=== PATIENT | female | born 1980 | race African-American/Black ===

== ENCOUNTER 2018-03-18 16:57 | Emergency (ER) | payer OTHER ==
[~2018-03-18] VITALS: Ht 162.6 cm; Wt 76.7 kg
[2018-03-18 17:12] LABS: URINE BILIRUBIN NEGATIVE (Negative); URINE BLOOD 3+ (Negative); URINE CLARITY SL CLOUDY; URINE COLOR YELLOW; URINE GLUCOSE-RANDOM* NEGATIVE (Negative); URINE KETONES TRACE (Negative); URINE PROTEIN (DIPSTICK) 2+ (Negative); URINE SPECIFIC GRAVITY <= 1.005 (1.005-1.035); URINE UROBILINOGEN 0.2 E.U./dl (0.2-1.0)
[2018-03-18 17:24] LABS: URINE LEUKOCYTES-REFLEX 2+ (Negative); URINE NITRITE-REFLEX POSITIVE (Negative)
[2018-03-18 17:27] LABS: CASTS None Seen /LPF (None Seen); CRYSTALS None Seen /LPF (None Seen); SQUAMOUS 0-3 Few /LPF (0-3); URINE RBC 0-2 Rare /HPF (0-2); URINE WBC-REFLEX >25 Many /HPF (0-5)
[2018-03-18 18:03] LABS: ABSOLUTE NEUTROPHILS 7.2 thou/uL (1.4-8.2); BASOPHILS 0.1 % (0.0-2.0); EOSINOPHILS 0.1 % (0.0-3.0); HEMATOCRIT 39.9 % (37.0-47.0); HEMOGLOBIN 13.4 gm/dL (12.0-15.0); LYMPHOCYTES 4.5 % (24.0-44.0); MCH 32.2 pg (26.0-34.0); MCHC 33.6 g/dL (28.0-37.0); MCV 95.8 fL (80.0-100.0); MONOCYTES 1.9 % (1.0-8.0); PLATELET COUNT 213 thou/uL (150-400); POLYS 93.4 % (36.0-66.0); RBC 4.17 mil/uL (4.20-5.00); RDW 15.2 % (10.5-14.5); WBC 7.7 thou/uL (4.0-11.0)
[2018-03-18 18:12] LABS: CALCIUM 9.1 mg/dL (8.5-10.1); CREATININE 1.1 mg/dL (0.6-1.0); POTASSIUM 3.1 mmol/L (3.5-5.1)
[2018-03-18] MEDS ORDERED: KEFLEX500 M1 PO (19:42)
[2018-03-18] MEDS ORDERED: NORCO 5-325 TA1 EACH PO (19:42)
[2018-03-18 19:56] VITALS: BP 118/71
== END 2018-03-18 20:00 | disposition home or self-care (01) ==
LOC: ER 16:57
PROVIDERS: Physician Assistant
DX: N12 Tubulo-interstitial nephritis, not specified as acute or chronic (principal); F17.210 Nicotine dependence, cigarettes, uncomplicated; Z88.0 Allergy status to penicillin

== ENCOUNTER 2020-01-26 13:41 | Emergency (ER) | payer OTHER ==
[~2020-01-26] VITALS: Ht 162.6 cm; Wt 84.8 kg
[~2020-01-26 13:41] MED LIST: KEFLEX500 M1 PO; NORCO 5-325 TA1 EACH PO
[2020-01-26] MEDS ORDERED: LISINOPRIL-HCT1 EAC1 PO (14:00)
[2020-01-26] MEDS ORDERED: METFORMIN HCL500 M3 PO (14:01)
[2020-01-26] MEDS ORDERED: HYDROXYZINE HCL25 M2 PO (14:02)
[2020-01-26] MEDS ORDERED: MELATONIN10 M3 PO (14:02)
[2020-01-26] MEDS ORDERED: DESYREL150 MG PO (14:02)
[2020-01-26 14:47] LABS: BASOPHILS 0.4 % (0.0-2.0); HEMATOCRIT 41.8 % (37.0-47.0); HEMOGLOBIN 13.7 gm/dL (12.0-15.0); LYMPHOCYTES 25.6 % (24.0-44.0); MCH 30.6 pg (26.0-34.0); MCHC 32.8 g/dL (28.0-37.0); MCV 93.3 fL (80.0-100.0); MONOCYTES 8.4 % (1.0-8.0); PLATELET COUNT 343 thou/uL (150-400); POLYS 63.6 % (36.0-66.0); RBC 4.48 mil/uL (4.20-5.00); RDW 15.7 % (10.5-14.5); WBC 6.4 thou/uL (4.0-11.0)
[2020-01-26 14:56] LABS: ANION GAP 12 mmol/L (7-16); BUN 9 mg/dL (7-18); CALCIUM 9.6 mg/dL (8.5-10.1); CHLORIDE 101 mmol/L (98-107); CO2 25 mmol/L (21-32); CREATININE 0.8 mg/dL (0.6-1.0); GLUCOSE 142 mg/dL (74-106); POTASSIUM 4.1 mmol/L (3.5-5.1); SODIUM 138 mmol/L (136-145)
[2020-01-26 15:04] LABS: ALBUMIN 4.1 g/dL (3.4-5.0); SGOT 61 U/L (15-37); SGPT 94 U/L (30-65); TOTAL BILIRUBIN 0.2 mg/dL (0.2-1.0); TROPONIN-I <0.06 ng/mL (<0.06)
[2020-01-26 17:34] VITALS: BP 122/80
--- NOTE | 2020-01-27 11:20 | EKG ---
[facility] [place] [address] ELECTROCARDIOGRAM REPORT Name: JULIEN SMALLS Room #: [facility]#: [id number] Admission: 01/26/20 Attend Phys: Discharge: 01/26/20 Date of : [birth year] Report #: [id number] THIS REPORT FOR: cc: FAM - Family physician unknown FAM - Family physician unknown Carlos Curiel MD [facility] ~ THIS REPORT FOR: //name// [facility] ED Test Date: 2020-01-26 Test Time: 13:57:07 Pat Name: JULIEN SMALLS Department: Room: Gender: F Staffing Administrator: [facility] : 1980 Requested By: Blayne Lopez Order Number: [id number] MD: Carlos Curiel Measurements Intervals [place] Rate: 92 P: 46 WV: 147 QRS: 21 QRSD: 84 T: 18 QT: 349 QTc: 432 Interpretive Statements Sinus rhythm Probable left atrial enlargement No previous ECG available for comparison Electronically Signed On 01-27-2020 11:20:08 CDT by Carlos Curiel [email or web address] <ELECTRONICALLY SIGNED> By: Carlos Curiel MD, FACC 01/27/20 1120 135 135 Carlos Curiel MD, FACC /EPI
== END 2020-01-26 17:34 | disposition home or self-care (01) ==
LOC: ER 13:41
PROVIDERS: Emergency Medicine
DX: R07.9 Chest pain, unspecified (principal); I10 Essential (primary) hypertension; E11.9 Type 2 diabetes mellitus without complications; F17.210 Nicotine dependence, cigarettes, uncomplicated; Z79.899 Other long term (current) drug therapy; Z88.0 Allergy status to penicillin

== ENCOUNTER 2020-09-07 01:56 | Emergency (ER) | payer OTHER ==
[~2020-09-07] VITALS: Ht 162.6 cm; Wt 81.7 kg
[~2020-09-07 01:56] MED LIST changes: +DESYREL150 MG PO; +HYDROXYZINE HCL25 M2 PO; +LISINOPRIL-HCT1 EAC1 PO; +MELATONIN10 M3 PO; +METFORMIN HCL500 M3 PO
[2020-09-07 02:25] LABS: BASOPHILS 0.4 % (0.0-2.0); EOSINOPHILS 0.1 % (0.0-3.0); HEMATOCRIT 42.6 % (37.0-47.0); HEMOGLOBIN 14.4 gm/dL (12.0-15.0); LYMPHOCYTES 8.9 % (24.0-44.0); MCH 30.5 pg (26.0-34.0); MCHC 33.8 g/dL (28.0-37.0); MCV 90.4 fL (80.0-100.0); MONOCYTES 2.6 % (1.0-8.0); PLATELET COUNT 358 thou/uL (150-400); RBC 4.72 mil/uL (4.20-5.00); RDW 13.9 % (10.5-14.5); WBC 11.3 thou/uL (4.0-11.0)
[2020-09-07 02:37] LABS: CALCIUM 9.3 mg/dL (8.5-10.1)
[2020-09-07 02:42] LABS: ALBUMIN 3.9 g/dL (3.4-5.0); TOTAL BILIRUBIN 0.4 mg/dL (0.2-1.0); TOTAL PROTEIN 8.3 g/dL (6.4-8.2)
[2020-09-07 03:19] LABS: URINE BILIRUBIN 1+ (Negative); URINE BLOOD 1+ (Negative); URINE CLARITY CLEAR; URINE COLOR YELLOW; URINE GLUCOSE-RANDOM* NEGATIVE (Negative); URINE KETONES 3+ (Negative); URINE LEUKOCYTES-REFLEX NEGATIVE (Negative); URINE NITRITE-REFLEX NEGATIVE (Negative); URINE PROTEIN (DIPSTICK) TRACE (Negative); URINE SPECIFIC GRAVITY 1.015 (1.005-1.035); URINE UROBILINOGEN 0.2 E.U./dl (0.2-1.0)
[2020-09-07 03:37] LABS: ICTOTEST (BILI CONFIRMATORY) Positive (Negative)
[2020-09-07 03:39] LABS: BACTERIA-REFLEX 1-9 Few /HPF (None Seen); CASTS None Seen /LPF (None Seen); CRYSTALS None Seen /LPF (None Seen); MUCUS None Seen strn/LPF (None Seen); SQUAMOUS 4-10 Moderate /LPF (0-3); URINE RBC 1-2 Rare /HPF (NONE SEEN); URINE WBC-REFLEX None Seen /HPF (0-5)
[2020-09-07] MEDS ORDERED: ZOFRAN ODT4 MG PO (05:02)
[2020-09-07] MEDS ORDERED: LEVSIN0.125 MG PO (05:02)
[2020-09-07 05:08] VITALS: BP 120/78
== END 2020-09-07 05:08 | disposition home or self-care (01) ==
LOC: ER 01:56
PROVIDERS: Emergency Medicine
DX: K52.9 Noninfective gastroenteritis and colitis, unspecified (principal); Z20.822 Contact with and (suspected) exposure to COVID-19; I10 Essential (primary) hypertension; E11.9 Type 2 diabetes mellitus without complications; F17.210 Nicotine dependence, cigarettes, uncomplicated; Z88.0 Allergy status to penicillin

== ENCOUNTER 2020-09-28 23:37 | Emergency (ER) | payer OTHER ==
[~2020-09-28] VITALS: Ht 162.6 cm; Wt 86.2 kg
[~2020-09-28 23:37] MED LIST changes: +LEVSIN0.125 MG PO; +ZOFRAN ODT4 MG PO
[2020-09-29 00:18] LABS: ABSOLUTE NEUTROPHILS 10.2 thou/uL (1.4-8.2); BASOPHILS 0.4 % (0.0-2.0); EOSINOPHILS 1.2 % (0.0-3.0); HEMATOCRIT 47.3 % (37.0-47.0); HEMOGLOBIN 15.5 gm/dL (12.0-15.0); LYMPHOCYTES 22.6 % (24.0-44.0); MCH 30.7 pg (26.0-34.0); MCHC 32.7 g/dL (28.0-37.0); MCV 93.8 fL (80.0-100.0); MONOCYTES 6.1 % (1.0-8.0); PLATELET COUNT 364 thou/uL (150-400); POLYS 69.7 % (36.0-66.0); RBC 5.04 mil/uL (4.20-5.00); RDW 15.1 % (10.5-14.5); WBC 14.6 thou/uL (4.0-11.0)
[2020-09-29 00:24] LABS: CALCIUM 8.9 mg/dL (8.5-10.1); POTASSIUM 3.2 mmol/L (3.5-5.1)
[2020-09-29 00:30] LABS: ALBUMIN 3.1 g/dL (3.4-5.0); TOTAL BILIRUBIN 0.5 mg/dL (0.2-1.0); TOTAL PROTEIN 6.8 g/dL (6.4-8.2)
[2020-09-29 00:38] LABS: URINE BILIRUBIN 2+ (Negative); URINE BLOOD TRACE (Negative); URINE CLARITY SL CLOUDY; URINE COLOR YELLOW; URINE GLUCOSE-RANDOM* NEGATIVE (Negative); URINE KETONES 3+ (Negative); URINE NITRITE-REFLEX NEGATIVE (Negative); URINE PROTEIN (DIPSTICK) NEGATIVE (Negative); URINE SPECIFIC GRAVITY >= 1.030 (1.005-1.035)
[2020-09-29 00:42] LABS: URINE LEUKOCYTES-REFLEX 1+ (Negative)
[2020-09-29 01:06] LABS: BACTERIA-REFLEX >30 Many /HPF (None Seen); CASTS None Seen /LPF (None Seen); CRYSTALS None Seen /LPF (None Seen); MUCUS 0-3 Light strn/LPF (None Seen); SQUAMOUS 4-10 Moderate /LPF (0-3); URINE RBC 3-10 Few /HPF (NONE SEEN)
[2020-09-29] MEDS ORDERED: MACROBID 100 M100 M1 PO (02:44)
[2020-09-29] MEDS ORDERED: BENTYL 10 MG CA10 MG PO (02:44)
[2020-09-29 03:41] VITALS: BP 110/75
== END 2020-09-29 04:17 ==
LOC: ER 23:37
PROVIDERS: Emergency Medicine
DX: N39.0 Urinary tract infection, site not specified (principal); R11.2 Nausea with vomiting, unspecified; R10.10 Upper abdominal pain, unspecified; I10 Essential (primary) hypertension; E11.9 Type 2 diabetes mellitus without complications; F17.210 Nicotine dependence, cigarettes, uncomplicated; Z88.0 Allergy status to penicillin; Z91.010 Allergy to peanuts; Z79.899 Other long term (current) drug therapy

== ENCOUNTER 2020-11-01 20:48 | Emergency (ER) | payer OTHER ==
[~2020-11-01] VITALS: Ht 165.1 cm; Wt 87.5 kg
--- NOTE | ~2020-11-01 | EMS ---
[place] [address] EMS Patient Care Report Name: JULIEN SMALLS Room #: [facility]P [facility] Velasquez#: [id number] Admission: 11/01/20 Attend Phys: Discharge: 11/02/20 Date of : [birth year] Report #: [id number] THIS REPORT FOR: //name// Report Transmitted: 11/02/2020 09:18 EMS Care Summary [place], [place]/[facility] Incident [id number] @ 11/01/2020 20:10 Incident Location [address] [place], [place] [id number] Patient JULIEN SMALLS Female, 39 Years 1980 Patient Address Patient History Behavioral/Psychiatric Disorder, Patient Allergies No known allergies, Patient Medications Trazodone, Chief Complaint AMS Disposition Transported No Lights/[place] Dispatch Reason Stroke/CVA Transported To [facility] Narrative UPON ARRIVAL WE FOUND OUR OBTUNDED 39 YEAR OLD FEMALE PATIENT SLUMPED OVER ON THE COUCH IN THE FRONT ROOM OF AN APT WITH [employer] AND ALS P41 BY HER SIDE. [employer] STATES THEY RECEIVED A CALL FROM A 3RD LIBERTARIAN WHO CALLED TO REPORT THAT THE PATIENT WENT UNCONSCIOUS WHILE THEY WERE FACETIMING. THERE IS A PLATE ON THE COFFEE TABLE IN FRONT OF THE COUCH THAT HAS A LINE OF A COARSELY CRUSHED WHITE SUBSTANCE WITH A STRAW AND A BOTTLE OF TRAZODONE TABLETS. THE PATIENT ALSO HAS [place] [id number] EMS Patient Care Report Name: JULIEN SMALLS Room #: [facility]P [facility].#: [id number] Admission: 11/01/20 Attend Phys: Discharge: 11/02/20 Date of : 80 Report #: [id number] THE ODOR OF ETOH ON HER PERSON WITH GLASSY EYES AND REDDENED SCLERA. WE TRANSPORTED THE PATIENT TO [facility], WHICH WAS THE CLOSEST [facility]. Initial Vitals @20:44P: 72,R: 18,BP: 122/80,SpO2: 97, @20:29P: 91,R: 18,BP: 125/88,Pain: 0/10,GCS: 11,Glucose: 114,CO: 3,SpO2: 97,Revised Trauma: 11,CT Suspected: false Assessments @20:24MENTAL:Other,SKIN:Diaphoresis,HEENT:Head/Face: Other,Eyes: Left Pupil: 4-mm,Eyes: Right Pupil: 4-mm,Neck/Airway: No Abnormalities,LUNG SOUNDS:General: No Abnormalities,ABDOMEN:General: No Abnormalities,PELVIS//GI:No Abnormalities,EXTREMITIES:Left Arm: No Abnormalities,Right Arm: No Abnormalities,Left Leg: No Abnormalities,Right Leg: No Abnormalities,PULSE:Radial: 2+ Normal,NEURO:Slurred Speech, Impression Altered Mental Status Procedures @20:24ALS AssessmentResponse: UnchangedSucceeded@20:32Saline Lock 0cc (20 ga) Site: Forearm-LeftResponse: UnchangedSucceeded@20:293-Lead ECGResponse: UnchangedSucceeded Timeline 20:07,Call Received 20:07,Dispatch Notified 20:10,Dispatched 20:13,En Route 20:23,On Scene 20:24,At Patient 20:24,ALS Assessment,Response: UnchangedSucceeded, 20:29,3-Lead ECG,Response: UnchangedSucceeded, 20:29,BP: 125/88 M,PULSE: 91,RR: 18 R,SPO2: 97 Ox,ETCO2: ,B,PAIN: 0,GCS: 11, 20:32,Saline Lock 0cc 20 ga Site: Forearm-Left,Response: UnchangedSucceeded, 20:33,Depart Scene 20:43,At Destination 20:44,BP: 122/80 M,PULSE: 72,RR: 18 R,SPO2: 97 Ox,ETCO2: ,BG: ,PAIN: ,GCS: , 21:11,Call Closed Disclaimer v1.1 Copyright 2020 [employer] This EMS Care Summary contains data elements from the applicable legal record (which may be displayed differently). It is designed to provide pertinent information for the following purposes: continuity of care, clinical quality, [address] [address] EMS Patient Care Report Name: SLIMJULIENJIM SOW Room #: [facility]P [facility] Velasquez#: [id number] Admission: 11/01/20 Attend Phys: Discharge: 11/02/20 Date of : [birth year] Report #: [id number] and state data reporting. The complete legal record is available to ED staff and administrators of the receiving hospital in ES's Patient Tracker. All data is provided "as is."
--- NOTE | ~2020-11-01 | HC ---
[facility] [place] [address] CONSULTATION Name: JULIEN SMALLS [id number] Admission: 11/01/20 Attend Phys: Discharge: 11/02/20 Date of : 80 Report #: [id number] THIS REPORT FOR: cc: Patti Mejia, Patti Blunt,Javier Hewitt MD ~ DATE OF SERVICE: 11/01/2020 DATE OF SERVICE: 11/01/2020 and 11/02/2020 HISTORY OF PRESENT ILLNESS: This is a 39-year-old female patient on whom I got a call from Emergency Room physician around 11:15 p.m. today. The call was because he has received the CT scan results and CT scan has shown a question of hyperdense sign as well as some patchy confluence with less than one-third area of the middle cerebral artery distribution. The patient's clinical presentation was consistent with a large right hemispheric stroke. I came and saw this patient immediately from home and I talked to neuroradiologist who read this CT scan and he indicated that hyperdense sign is there. He also indicated that there is no hemorrhage. Emergency Room physician has talked to the patient's friend and they were very certain that she was within the timeframe for giving the tPA. This patient is a very difficult patient. She had cocaine in her system. Cocaine was not evaluated in earlier study and there is one 2009 study, indicated that the risk of hemorrhage is about the same as in general populace in getting the tPA. Some other studies have indicated that chronic cocaine users have higher incidence of hemorrhage. Similarly, initially, the patient with carotid dissections were excluded from tPA, but now it is considered only a relative contraindication and the emphasis is to go ahead and proceed with tPA. Similarly, the stroke is showing up on CT, but I talked to neuroradiologist, it is only a very small distribution and the timing from the friend is pretty accurate according to the Emergency Room. When I came and examined the patient, she was getting tPA and she had a complete dense left hemiplegia. She was able to talk. She had a dense left facial palsy. So, she has clinical evidence for a large right hemispheric CVA. Further history was limited. She did not provide much history except the headache. There is a gentleman in the room who says he is the patient's father and he said he does not know anything about the history, especially the drug abuse history. 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 This is a very difficult patient. Her prognosis is very guarded, does not [facility] [address] [place] [address] CONSULTATION Name: JULIEN SMALLS MAGI Room #: DEP [facility] Velas[facility]#: [id number] Admission: 11/01/20 Attend Phys: Discharge: 11/02/20 Date of : [birth year] Report #: [id number] matter what we do. She appeared to have a large right hemispheric CVA. She has high risk for stroke becoming hemorrhagic and high risk for developing malignant edema. She is a female, she is young and she has a huge CVA. The risk factor for hemorrhage include her cocaine use and huge CVA. This huge CVA tend to get hemorrhagic spontaneously without any intervention and they get hemorrhagic more often with intervention. If nothing is done, this patient has a huge hemispheric CVA and she is on a risk of huge disability as well as , even if we do not do anything and even if we do something, she is still on a high risk of developing high disability or even . In these circumstances, the best is to do the best we can. She has already received tPA. At least one of the studies has indicated chances of complication after tPA is not significantly higher in a patient who uses cocaine versus who do not. There are some other data which is conflicting, but typically tPA is given, but she has other problem, which will increase her chances of hemorrhage. So, tPA is already given. I told the Emergency Room physician to transfer this patient to the tertiary care center, both because she is high risk for bleeding and the need to evaluate her what to do with the abnormality she is showing in the internal carotid as well as middle cerebral artery. If the abnormality is only in the middle cerebral artery, the decision is easier, but when internal carotid artery is involved, that becomes difficult and she needs to be in tertiary care center. Irrespective of intervention, her prognosis is pretty guarded and multiple complications can occur in this patient with or without any treatment. Thank you very much for this referral and if you have any questions, please feel free to contact me. By: [id number] Javier Blunt MD /nt
[~2020-11-01 20:48] MED LIST changes: +BENTYL 10 MG CA10 MG PO; +MACROBID 100 M100 M1 PO
[2020-11-01 21:14] LABS: URINE BILIRUBIN NEGATIVE (Negative); URINE BLOOD 1+ (Negative); URINE CLARITY CLEAR; URINE COLOR YELLOW; URINE GLUCOSE-RANDOM* NEGATIVE (Negative); URINE KETONES 2+ (Negative); URINE LEUKOCYTES-REFLEX NEGATIVE (Negative); URINE NITRITE-REFLEX NEGATIVE (Negative); URINE PROTEIN (DIPSTICK) NEGATIVE (Negative); URINE SPECIFIC GRAVITY 1.025 (1.005-1.035); URINE UROBILINOGEN 0.2 E.U./dl (0.2-1.0)
[2020-11-01 21:22] LABS: AMP/METHAMP Negative (Negative); BARBITURATES Negative (Negative); BENZODIAZEPINES Negative (Negative); COCAINE POSITIVE (Negative); METHADONE Negative (Negative); OPIATES Negative (Negative); PCP Negative (Negative)
[2020-11-01 21:30] LABS: BASOPHILS 0.2 % (0.0-2.0); EOSINOPHILS 0.9 % (0.0-3.0); HEMATOCRIT 43.1 % (37.0-47.0); HEMOGLOBIN 14.7 gm/dL (12.0-15.0); LYMPHOCYTES 15.4 % (24.0-44.0); MCV 94.2 fL (80.0-100.0); MONOCYTES 7.9 % (1.0-8.0); PLATELET COUNT 244 thou/uL (150-400); POLYS 75.6 % (36.0-66.0); RBC 4.58 mil/uL (4.20-5.00); RDW 15.1 % (10.5-14.5); WBC 9.2 thou/uL (4.0-11.0)
[2020-11-01 21:36] LABS: SQUAMOUS 4-10 Moderate /LPF (0-3)
[2020-11-01 21:37] LABS: CASTS None Seen /LPF (None Seen); CRYSTALS None Seen /LPF (None Seen); URINE RBC 1-2 Rare /HPF (NONE SEEN); URINE WBC-REFLEX 0-5 Rare /HPF (0-5)
[2020-11-01 21:42] LABS: ANION GAP 16 mmol/L (7-16); BUN 6 mg/dL (7-18); CALCIUM 7.8 mg/dL (8.5-10.1); CHLORIDE 103 mmol/L (98-107); CO2 22 mmol/L (21-32); CREATININE 0.8 mg/dL (0.6-1.0); GLUCOSE 190 mg/dL (74-106); SODIUM 141 mmol/L (136-145)
[2020-11-01 21:43] LABS: POTASSIUM 3.4 mmol/L (3.5-5.1)
[2020-11-01 21:52] LABS: ALBUMIN 3.2 g/dL (3.4-5.0); LIPASE 147 U/L (73-393); SALICYLATE 2.7 mg/dL (2.8-20.0); SGOT 36 U/L (15-37); SGPT 43 U/L (14-59); TOTAL BILIRUBIN 0.4 mg/dL (0.2-1.0); TOTAL PROTEIN 6.5 g/dL (6.4-8.2); TROPONIN-I <0.06 ng/mL (<0.06)
[2020-11-02 00:35] VITALS: BP 130/92
--- NOTE | 2020-11-02 07:16 | EKG ---
[place] [address] [facility] [employer] [address] ELECTROCARDIOGRAM REPORT Name: JULIEN SMALLS [facility] [id number] Admission: 11/01/20 Attend Phys: Discharge: 11/02/20 Date of : 80 Report #: [id number] [facility] ED Test Date: 2020-11-01 Test Time: 21:14:05 Pat Name: JULIEN SMALLS Department: Room: Gender: F Commission Specialist: RICHARD : 1980 Requested By: Arun Pichardo Order Number: [id number] MD: Carlos Curiel Measurements Intervals [place] Rate: 67 P: 1 NE: 167 QRS: -4 QRSD: 90 T: 50 QT: 450 QTc: 475 Interpretive Statements Sinus rhythm Poor R wave progression V1-3 Baseline wander in lead(s) II,aVR Compared to ECG 01/26/2020 13:57:07 No significant change Electronically Signed On 11-02-2020 7:16:36 CDT by Carlos Curiel [email or web address] <ELECTRONICALLY SIGNED> By: Carlos Curiel MD, [facility] 11/02/20 0716 13 13 Carlos Curiel MD, [facility] /EPI
== END 2020-11-02 00:35 | disposition short-term general hospital (02) ==
LOC: ER 20:48
PROVIDERS: Emergency Medicine
DX: S00.83XA Contusion of other part of head, initial encounter (principal); T43.211A Poisoning by selective serotonin and norepinephrine reuptake inhibitors, accidental (unintentional), initial encounter; R41.82 Altered mental status, unspecified; I63.89 Other cerebral infarction; I10 Essential (primary) hypertension; E11.9 Type 2 diabetes mellitus without complications; F17.210 Nicotine dependence, cigarettes, uncomplicated; Z79.899 Other long term (current) drug therapy; Z88.0 Allergy status to penicillin; Z91.010 Allergy to peanuts; Y92.89 Other specified places as the place of occurrence of the external cause; X58.XXXA Exposure to other specified factors, initial encounter; Y93.89 Activity, other specified; Y99.8 Other external cause status